=== PATIENT | male | born 2000 | race African-American/Black ===

== ENCOUNTER 2021-10-18 16:28 | Emergency (ER) | payer SELFPAY ==
[~2021-10-18] VITALS: Ht 193 cm; Wt 120.0 kg
[2021-10-18 16:46] VITALS: BP 111/62
[2021-10-18 19:51] LABS: HEMATOCRIT. 44.5 % (42.0-52.0); HEMOGLOBIN. 15.4 g/dL (14.0-18.0); MEAN CORPUSCULAR HEMOGLOBIN 29.1 pg (28.0-32.0); MEAN CORPUSCULAR VOLUME 83.9 fL (80.0-94.0); PLATELET 243 x1000/uL (130-400); RED CELL DISTRIBUTION WIDTH 12.5 % (11.6-14.6)
[2021-10-18 19:56] LABS: CHLORIDE 109 mEq/L (98-107)
[2021-10-18 21:24] LABS: PLATELET ESTIMATE NORMAL
[2021-10-18 21:34] LABS: CLARITY URINE CLEAR (CLEAR); COLOR URINE YELLOW (YELLOW); KETONES URINE TRACE (NEGATIVE); LEUKOCYTE ESTERASE URINE TRACE (NEGATIVE); NITRITE URINE NEGATIVE (NEGATIVE); OCCULT BLOOD URINE NEGATIVE (NEGATIVE); PH URINE 7.5 (4.5-8.0); PROTEIN URINE NEGATIVE (NEGATIVE); SPECIFIC GRAVITY URINE 1.028 (1.005-1.030)
== END 2021-10-19 01:16 | disposition left against medical advice (07) ==
LOC: ER 16:28
DX: R10.84 Generalized abdominal pain (principal); R03.0 Elevated blood-pressure reading, without diagnosis of hypertension
CPT/HCPCS: 36415; 80053; 81003; 85025; 99283